=== PATIENT | female | born 1960 | race Caucasian/White ===

== ENCOUNTER 2022-04-02 11:40 | Emergency (ER) | payer BC, SELFPAY ==
[2022-04-02 12:01] VITALS: BP 144/76; PULSE 95; RESP 18; TEMP 36.4; O2SAT 99; BMI 28.9
--- NOTE | 2022-04-02 13:16 | ED.URI ---
HPI - URI/Sore Throat <Peggy Hinojosa PA-C - Last Filed: 04/02/22 16:58> General Chief Complaint: Upper Respiratory Symptoms Stated Complaint: COVID+ seeking treatment Time Seen by Provider: 04/02/22 12:15 Source: patient Mode of arrival: Family Vehicle History of Present Illness HPI Narrative: Patient is a very pleasant 61-year-old female, was past medical history significant for dyslipidemia, hypertension is a [place] on the [employer] [place]. She noticed sore throat, congestion, cough for about 5 days ago. She also describes significant facial and nasal pressure and copious yellow green and at times clear discharge. She denies fever. She denies excessive body aches. She did lose her smell and taste mostly due for congestion. She started to feel better however her cough, and congestion makes her feel ?miserable?. She denies headache she denies shortness of breath, chest pressure or chest pain She was tested positive COVID-19. Mrs Gibson self quarantined herself but concerned about her traveling back on a plane. Related Data Previous Rx's Medication Instructions Recorded amoxicillin 500 mg tablet 500 mg PO TID #30 tabs 04/02/22 codeine 10 mg-guaifenesin 100 mg/5 5 ml PO Q6H PRN cough #120 mL 04/02/22 mL oral liquid oxymetazoline 0.05 % nasal mist 2 spray intranasal Q12H PRN nasal 04/02/22 (Afrin (oxymetazoline)) congestion 3 days #15 mL Allergies Allergy/AdvReac Type Severity Reaction Status Date / Time Sulfa (Sulfonamide Allergy Severe Swelling Verified 04/02/22 12:05 Antibiotics) of Lip/Tongue/Throat Review of Systems <Peggy Hinojosa PA-C - Last Filed: 04/02/22 16:58> Review of Systems Narrative: GENERAL: Denies chills, admits to fatigue, no malaise, fever, sweats. HEENT: Admits to sinus pain, some ear pain, sore throat, no difficulty swallowing, dizziness. RESPIRATORY: Denies dyspnea, admits to cough, denies wheezing, hemoptysis, brings on some sputum. CARDIOVASCULAR: Denies chest pain, palpitations, orthopnea, edema, GASTROINTESTINAL: Denies nausea, vomiting, abdominal pain, diarrhea, constipation, melena. : Denies dysuria, frequency, incontinence, hematuria, urinary retention. MUSCULOSKELETAL: denies weakness, joint pain, or bony pain SKIN: Denies rash, skin lesions, or other NEUROLOGIC: Denies weakness, headache, numbness, change in speech, confusion, seizures, incoordination. PSYCHIATRIC: No concerning psychosocial issues. 12 point review of systems is negative except for those stated above Patient History <Peggy Hinojosa PA-C - Last Filed: 04/02/22 16:58> Social History Smoking Status: Never smoker Smoking Status: Never smoker alcohol intake frequency: holidays/special occasions only Substance Use Type: does not use Exam <Peggy Hinojosa PA-C - Last Filed: 04/02/22 16:58> Narrative Exam Narrative: GENERAL: [] year old patient appears stated age. Well-developed patient, in mild distress. HEAD: Atraumatic. Normocephalic. EYES: Pupils equal round and reactive. Extraocular motions intact. No scleral icterus. No injection or drainage. ENT: Nose without bleeding, there is clear and some green drainage. Throat with erythema,no tonsillar hypertrophy or exudate. Airway patent. NECK: Trachea midline. Non tender CARDIOVASCULAR: Regular rate and rhythm without murmurs, gallops, or rubs. RESPIRATORY: Clear to auscultation KRYSTLE . Breath sounds equal bilaterally. No wheezes, rales, or rhonchi. GASTROINTESTINAL: Abdomen soft, non-tender, nondistended. EXTREMITIES: No edema or joint tenderness. BACK: Nontender without deformity or crepitance. No flank tenderness. NEURO: AOx3. SKIN: No rash or erythema of visible areas Initial Vital Signs Initial Vital Signs: Vital Signs Temperature 97.6 F 04/02/22 12:01 Pulse Rate 95 H 04/02/22 12:01 Respiratory Rate 18 04/02/22 12:01 Blood Pressure 144/76 H 04/02/22 12:01 Pulse Oximetry 99 04/02/22 12:01 Oxygen Delivery Method 04/02/22 12:01 <Eliana Blackman DO - Last Filed: 04/04/22 07:56> Initial Vital Signs Initial Vital Signs: Vital Signs Temperature 97.6 F 04/02/22 12:01 Pulse Rate 95 H 04/02/22 12:01 Respiratory Rate 18 04/02/22 12:01 Blood Pressure 144/76 H 04/02/22 12:01 Pulse Oximetry 99 04/02/22 12:01 Oxygen Delivery Method 04/02/22 12:01 Course <Peggy Hinojosa PA-C - Last Filed: 04/02/22 16:58> Course Course Narrative: Patient was observed in the emergency department. Her vital signs remained stable. She seemed relieved from cough syrup. Mrs. Gibson was stable to be discharge home in stable condition. Her COVID-19 symptoms noted essentially mild Orders Ordered: Discontinued Medications Guaifenesin/Codeine Phosphate (Codeine/Guaifenesin Liquid 5ml Udc) 10 ml PO NOW ONE Stop: 04/02/22 13:33 Last Admin: 04/02/22 13:46 Dose: 10 ml Documented By: AT Vital Signs Vital signs: Vital Signs - 8 hr 04/02/22 12:01 Temperature 97.6 F Pulse Rate 95 H Respiratory Rate 18 Blood Pressure 144/76 H Pulse Oximetry 99 Oxygen Delivery Method Room Air <Eliana Blackman DO - Last Filed: 04/04/22 07:56> Orders Ordered: Discontinued Medications Guaifenesin/Codeine Phosphate (Codeine/Guaifenesin Liquid 5ml Udc) 10 ml PO NOW ONE Stop: 04/02/22 13:33 Last Admin: 04/02/22 13:46 Dose: 10 ml Documented By: AT Vital Signs Vital signs: Vital Signs - 8 hr 04/02/22 12:01 Temperature 97.6 F Pulse Rate 95 H Respiratory Rate 18 Blood Pressure 144/76 H Pulse Oximetry 99 Oxygen Delivery Method Room Air MDM - URI/Sore Throat <Peggy Hinojosa PA-C - Last Filed: 04/02/22 16:58> Differential Diagnosis Differential diagnosis: Likely upper respiratory infection, sinusitis and viral infection Medical Records Medical records narrative: reviewed [facility] Narrative Medical decision making narrative: patient was examined, based on a clinical presentation, positive COVID 19 testing, diagnose with acute sinusitis, URI and COVID 19. Clinically patient is stable . She would be managed with symptomatic relief from nasal decongestant, cough suppressant and abx Discharge Plan Departure Patient Disposition: Home Clinical Impression: Upper respiratory infection, COVID-19, Sinusitis Instructions: DI for Sinusitis, COVID-19 Activity Restrictions/Additional Instructions: *You have been diagnosed with sinusitis, COVID-19 viremia. Symptoms of a viremia triggers significant congestion, and discomfort. You received guaifenesin/codeine syrup in the emergency department, which brought relief. *What to do: *Please continue to take your regular medications as directed. New medication prescriptions provided to you: Guaifenesin and codeine cough syrup, Afrin spray, and amoxicillin 500 mg 3 times daily antibiotic course *Please follow up with your primary care provider in 2-3 days, call for an appointment. Let them know you were seen in the Emergency Department and that we ask that you be seen in follow up. We will electronically transmit a record of today's note if your PCP is in our system Prescriptions: New amoxicillin 500 mg tablet 500 mg PO TID Qty: 30 0RF Afrin (oxymetazoline) 0.05 % mist 2 spray intranasal Q12H PRN (Reason: nasal congestion) 3 Days Qty: 15 0RF codeine-guaifenesin 10-100 mg/5 mL liquid 5 ml PO Q6H PRN (Reason: cough) Qty: 120 0RF Visit Report Forms: Patient Portal/API <Eliana Blackman DO - Last Filed: 04/04/22 07:56> Cosign ED Attending Trip Attestation: I was immediately available in the department for consultation. Documentation has been reviewed.
[2022-04-02] MEDS: CODEINE/GUAIFENESIN LIQUID 5ML UDC 10 ML PO (13:46)
== END 2022-04-02 15:17 | disposition home or self-care (01) ==
PROVIDERS: Emergency Provider Physician Assistant Medical
DX: U07.1 COVID-19 (principal); J32.9 Chronic sinusitis, unspecified
CPT/HCPCS: 99283